=== PATIENT | female | born 1930 | race Caucasian/White ===

== ENCOUNTER 2018-06-06 05:16 | Inpatient (IN) | payer OTHER, MEDICARE ==
[2018-06-06] MEDS ORDERED: SODIUM CHLORIDE 1,000 ML IV STA (05:18)
--- NOTE | 2018-06-06 05:23 | PDOC ---
History of Present Illness <Sher Mclaughlin - Last Filed: 06/06/18 09:40> - General History Source: Patient, Care Provider Exam Limitations: Dementia - History of Present Illness Initial Comments: 06/06/18 05:21 This is an 88-year-old female brought in by EMS for evaluation of generalized weakness and fever. As per the care provider patient has dementia and was unable to provide a adequate history.Percent patient got up to try to go to the bathroom prior to arrival and was so weak that she was unable to ambulate to the bathroom and and was so weak that she collapsed to the floor. She did not fall down but just sunk down to the floor and was too weak to get up again. 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 Caregiver said she also was diagnosed with a recent urinary tract infection and is taking amoxicillin for that. PAST MEDICAL HISTORY: Urinary tract infection, hypertension, high cholesterol PAST SURGICAL HISTORY: no significant history FAMILY HISTORY: no pertinant history SOCIAL HISTORY: Pt lives with a caregiver and is retired MEDICATIONS: reviewed ALLERGIES: As per nursing notes ROS General: + fevers + medical decision making this is a 88-year-old female who was brought in by EMS for evaluation of generalized weakness. Patient is being treated for a urinary tract infection. Chills, +weakness, no weight loss HEENT: No change in vision. No sore throat,. No ear pain CardioVascular: No chest pain or shortness of breath Respiratory:No cough, or wheezing. Gastrointestinal: no nausea, vomiting, diarrhea or constipation, No rectal bleeding Genitourinary: No dysuria, hematuria, or frequency Musculoskeletal: . No joint pain or swelling Neurologic: No headache, vertigo, dizziness or loss of consciousness Psychiatric: nor depression Skin: No rashes or easy bruising Endocrine: no increased thirst or abnormal weight change Allergic: no skin or latex allergy All other systems reviewed and normal Exam: General: Well-nourished well-developed individual, no acute distress HEENT: Throat: Normal, tonsils normal, no erythema or exudate Neck: Supple, no meningeal signs, no lymphadenopathy Eyes::Pupils equal reactive and round, extraocular motion intact Chest: Nontender to palpation Cardiac: S1-S2 normal, regular rate and rhythm, no murmurs rubs or gallops Respiratory: Lungs clear to auscultation bilateral Abdomen: Soft, nondistended, normal bowel sounds, there is no tenderness on palpation diffusely Extremities: Warm, dry, no cyanosis, clubbing, or edema Skin: No rashes Neuro: Alert and , CN II - XII intact, nonfocal exam with normal strength, normal sensation, normal reflexes, Psych: Nor chest x-ray chest x-ray mal mood and affect 06/06/18 05:23 This is a 88-year-old female brought in by EMS for generalized weakness. Patient is being treated for a urinary tract infection. Patient temperature rectally here in the emergency room was 96. Well initiated a sepsis workup. Patient otherwise was not hypotensive or tachycardic. 07:00 07:00 A workup was initiated however results are still pending when care was transferred to Dr. Mclaughlin at 7am. Case discussed in detail with oncoming Emergency Physician including history, physical exam and ancillary studies. Oncoming Emergency Physician has assumed care for the patient and will complete the evaluation and treatment. Patient is aware of the plan. Pt is clinically unchanged and stable. <Mil Bronson I - Last Filed: 06/07/18 21:55> - General Chief Complaint: Weakness Stated Complaint: FEVER, URINARY TRACT INFECTION Time Seen by Provider: 06/06/18 05:18 Past History <Sher Mclaughlin S - Last Filed: 06/06/18 09:40> <Mil Bronson I - Last Filed: 06/07/18 21:55> - Past Medical History Allergies/Adverse Reactions: Allergies Allergy/AdvReac Type Severity Reaction Status Date / Time No Known Allergies Allergy Verified 06/06/18 05:18 Home Medications: Ambulatory Orders Atorvastatin Ca [Lipitor] 20 mg PO Q2D 06/06/18 Latanoprost 0.005% Eye Drops [Xalatan 0.005% Eye Drops -] 1 drop OP HS 06/06/18 Lisinopril 5 mg PO DAILY 06/06/18 Memantine HCl 10 mg PO BID 06/06/18 Risperidone 1 tab PO BID 06/06/18 *Physical Exam - Vital Signs Last Vital Signs Temp Pulse Resp BP Pulse Ox 96.7 F L 73 20 126/76 97 06/06/18 05:59 06/06/18 05:54 06/06/18 05:54 06/06/18 05:54 06/06/18 05:54 <Sher Mclaughlin S - Last Filed: 06/06/18 09:40> ED Treatment Course - LABORATORY CBC & Chemistry Diagram: 06/06/18 05:59 06/06/18 05:59 - ADDITIONAL ORDERS Additional order review: Laboratory Results 06/06/18 06/06/18 06/06/18 05:59 05:59 05:59 PT with INR 11.50 INR 1.02 VBG pH 7.41 POC VBG pCO2 42.9 POC VBG pO2 25.0 L Mixed VBG HCO3 26.4 H Lactic Acid 0.8 06/06/18 05:59 RBC 3.82 MCV 83.0 MCHC 33.8 RDW 14.9 MPV 7.9 Neutrophils % 83.7 H Lymphocytes % 6.2 L Monocytes % 9.3 Eosinophils % 0.5 Basophils % 0.3 - Medications Given in the ED: ED Medications Discontinued Medications Generic Name Dose Route Start Last Admin Trade Name Mer PRN Reason Stop Dose Admin Sodium Chloride 1,000 mls @ 500 mls/hr 06/06/18 05:18 06/06/18 06:04 Normal Saline - IV 06/06/18 07:17 500 mls/hr ASDIR STA Administration <Sher Mclaughlin S - Last Filed: 06/06/18 09:40> - LABORATORY CBC & Chemistry Diagram: 06/06/18 05:59 06/06/18 05:59 <Mil Bronson I - Last Filed: 06/07/18 21:55> Medical Decision Making - Medical Decision Making Received patient from previous shift at 7 am. Reviewed H & P and PE, Agreed with findings Reportedly she has been coughing lately, As reported by her son her level of confusion is grossly unchenfed CXR reading : Early Right lower and mid lung infiltrate.Patient to be admitted as inpatient Hospiatlist called 06/06/18 07:59 <Sher Mclaughlin S - Last Filed: 06/06/18 09:40> *DC/Admit/Observation/Transfer - Discharge Dispostion Decision to Admit order: Yes <Sher Mclaughlin S - Last Filed: 06/06/18 09:40> <Mil Bronson I - Last Filed: 06/07/18 21:55> Diagnosis at time of Disposition: RLL pneumonia Qualifiers: Pneumonia type: due to unspecified organism Qualified Code(s): J18.1 - Lobar pneumonia, unspecified organism Hypothermia Qualifiers: Encounter type: initial encounter Qualified Code(s): T68.XXXA - Hypothermia, initial encounter Dementia Qualifiers: Dementia type: unspecified type Dementia behavioral disturbance: without behavioral disturbance Qualified Code(s): F03.90 - Unspecified dementia without behavioral disturbance - Discharge Dispostion Condition at time of disposition: Stable
[2018-06-06 06:24] LABS: VENOUS PC02 42.9 mmHg (38-52); VENOUS PH 7.41 (7.32-7.42)
[2018-06-06 06:47] LABS: ALBUMIN 3.1 g/dl (3.4-5.0); ALK PHOS 78 U/L (45-117); ANION GAP 11 MMOL/L (8-16); BILIRUBIN,TOTAL 0.8 mg/dL (0.2-1.0); BLOOD UREA NITROGEN 12 mg/dL (7-18); CALCIUM 8.3 mg/dL (8.5-10.1); CHLORIDE 93 mmol/L (98-107); CO2 24 mmol/L (21-32); CREATININE 0.3 mg/dL (0.55-1.02); GLUCOSE,RANDOM 91 mg/dL (74-106); POTASSIUM 4.1 mmol/L (3.5-5.1); SGOT/AST 17 U/L (15-37); SGPT/ALT 15 U/L (12-78); SODIUM 128 mmol/L (136-145); TOT PROT 5.9 g/dl (6.4-8.2)
[2018-06-06 07:02] LABS: BASO % 0.3 % (0-2.0); EOS % 0.5 % (0-4.5); HEMATOCRIT 31.7 % (32.4-45.2); HEMOGLOBIN 10.7 GM/dL (10.7-15.3); LYMPH % 6.2 % (8-40); MCH 28.1 pg (25.7-33.7); MCHC 33.8 g/dl (32.0-36.0); MEAN PLT VOLUME 7.9 fl (7.5-11.1); MONO % 9.3 % (3.8-10.2); NEUT % 83.7 % (42.8-82.8); PLATELET COUNT 223 K/MM3 (134-434); RBC 3.82 M/mm3 (3.60-5.2); RDW 14.9 % (11.6-15.6); WHITE BLOOD COUNT 7.6 K/mm3 (4.0-10.0)
[2018-06-06 07:13] LABS: INR 1.02 (0.83-1.09); PROTHROMBIN TIME (PATIENT) 11.5 SEC (9.7-13.0)
[2018-06-06 07:30] LABS: URINE APPEARANCE Clear; URINE BILIRUBIN Negative (NEGATIVE); URINE COLOR Yellow; URINE GLUCOSE (UA) Negative (NEGATIVE); URINE KETONE Negative (NEGATIVE); URINE LEUK ESTERASE Negative (NEGATIVE); URINE NITRITE Negative (NEGATIVE); URINE PROTEIN Trace (NEGATIVE); URINE UROBILINOGEN 0.2 (0.2-1.0)
[2018-06-06] MEDS ORDERED: CEFTRIAXONE 1,000 MG in DEXTROSE 5%-WATER - 50 ML IVPB ONE (08:23)
[2018-06-06] MEDS ORDERED: AZITHROMYCIN IVPB 500 MG in DEXTROSE 5%-WATER - 250 ML IVPB ONE (08:24)
[2018-06-06] MEDS ORDERED: AZITHROMYCIN 500 MG VIAL IVPB ONE (08:25)
[2018-06-06] MEDS ORDERED: cefTRIAXone SODIUM 1 GM VIAL ONE (08:25)
[2018-06-06 09:44] LABS: EPI CELLS FEW /HPF; URINE WBC 0-2 (0-5)
--- NOTE | 2018-06-06 09:44 | PDOC ---
*Physical Exam - Vital Signs Last Vital Signs Temp Pulse Resp BP Pulse Ox 97.6 F 62 20 105/49 98 06/06/18 09:05 06/06/18 09:05 06/06/18 05:54 06/06/18 09:05 06/06/18 09:05 - Physical Exam General Appearance: Yes: Moderate Distress, Thin HEENT: positive: Hearing Decreased Neck: positive: Supple Respiratory/Chest: positive: Crackles (Right base crackles) Cardiovascular: positive: Regular Rate, S1, S2, Other Gastrointestinal/Abdominal: positive: Normal Bowel Sounds, Flat. negative: Tender Musculoskeletal: positive: Other (Muscular atrophy) Extremity: positive: Pelvis Stable Integumentary: positive: Normal Color, Pale, Cold Neurologic: positive: Alert, Confused ED Treatment Course - LABORATORY CBC & Chemistry Diagram: 06/06/18 05:59 06/06/18 05:59 - ADDITIONAL ORDERS Additional order review: Laboratory Results 06/06/18 06/06/18 06/06/18 07:10 05:59 05:59 PT with INR 11.50 INR 1.02 VBG pH POC VBG pCO2 POC VBG pO2 Mixed VBG HCO3 Sodium Potassium Chloride Carbon Dioxide Anion Gap BUN Creatinine Creat Clearance w eGFR Random Glucose Lactic Acid Calcium Total Bilirubin AST ALT Alkaline Phosphatase Troponin I < 0.02 Total Protein Albumin Urine Color Yellow Urine Appearance Clear Urine pH 6.0 Ur Specific Josephine 1.020 Urine Protein Trace Urine Glucose (UA) Negative Urine Ketones Negative Urine Blood 2+ H Urine Nitrite Negative Urine Bilirubin Negative Urine Urobilinogen 0.2 Ur Leukocyte Esterase Negative 06/06/18 06/06/18 06/06/18 05:59 05:59 05:59 PT with INR INR VBG pH 7.41 POC VBG pCO2 42.9 POC VBG pO2 25.0 L Mixed VBG HCO3 26.4 H Sodium 128 L Potassium 4.1 Chloride 93 L Carbon Dioxide 24 Anion Gap 11 BUN 12 Creatinine 0.3 L Creat Clearance w eGFR > 60 Random Glucose 91 Lactic Acid 0.8 Calcium 8.3 L Total Bilirubin 0.8 AST 17 ALT 15 Alkaline Phosphatase 78 Troponin I Total Protein 5.9 L Albumin 3.1 L Urine Color Urine Appearance Urine pH Ur Specific Josephine Urine Protein Urine Glucose (UA) Urine Ketones Urine Blood Urine Nitrite Urine Bilirubin Urine Urobilinogen Ur Leukocyte Esterase 06/06/18 05:59 RBC 3.82 MCV 83.0 MCHC 33.8 RDW 14.9 MPV 7.9 Neutrophils % 83.7 H Lymphocytes % 6.2 L Monocytes % 9.3 Eosinophils % 0.5 Basophils % 0.3 - Medications Given in the ED: ED Medications Discontinued Medications Generic Name Dose Route Start Last Admin Trade Name Daveyq PRN Reason Stop Dose Admin Sodium Chloride 1,000 mls @ 500 mls/hr 06/06/18 05:18 06/06/18 06:04 Normal Saline - IV 06/06/18 07:17 500 mls/hr ASDIR STA Administration Azithromycin 500 mg/ Dextrose 250 mls @ 250 mls/hr 06/06/18 08:24 06/06/18 09 :15 IVPB 06/06/18 09:23 250 mls/hr ONCE ONE Administration Ceftriaxone Sodium 1,000 mg/ 50 mls @ 100 mls/hr 06/06/18 08:23 06/06/18 08: 30 Dextrose IVPB 06/06/18 08:52 100 mls/hr ONCE ONE Administration Medical Decision Making - Medical Decision Making Patient received iv atbc, fluids as ordered Discusse yomi patient's son present here. Dr Vital agreed with admission 06/06/18 10:25 *DC/Admit/Observation/Transfer Diagnosis at time of Disposition: RLL pneumonia Qualifiers: Pneumonia type: due to unspecified organism Qualified Code(s): J18.1 - Lobar pneumonia, unspecified organism Hypothermia Qualifiers: Encounter type: initial encounter Qualified Code(s): T68.XXXA - Hypothermia, initial encounter Dementia Qualifiers: Dementia type: unspecified type Dementia behavioral disturbance: without behavioral disturbance Qualified Code(s): F03.90 - Unspecified dementia without behavioral disturbance - Discharge Dispostion Condition at time of disposition: Stable Decision to Admit order Date/Time: Decision to Admit Order Category Date Time Status Decision to Admit to Hospital Routine Admission 06/06/18 09:42 Ordered - Referrals - Patient Instructions - Post Discharge Activity
[2018-06-06 09:45] LABS: URINE BACTERIA NONE SEEN /hpf (NEGATIVE)
--- NOTE | 2018-06-06 15:41 | HP ---
Admitting History and Physical - Primary Care Physician PCP: Clarisa Valera - Admission History of Present Illness: 88-year-old female brought in by EMS for evaluation of generalized weakness and fever. As per the care provider patient has dementia and was unable to provide a adequate history.Percent patient got up to try to go to the bathroom prior to arrival and was so weak that she was unable to ambulate to the bathroom and and was so weak that she collapsed to the floor. She did not fall down but just sunk down to the floor and was too weak to get up again. 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 Caregiver said she also was diagnosed with a recent urinary tract infection and is taking amoxicillin for that. 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 ...: No - Advance Directives Advance Directives: Yes: Living Will - Smoking History Smoking history: Former smoker Have you smoked in the past 12 months: No If you are a former smoker, when did you quit?: 25 years ago - Alcohol/Substance Use Hx Alcohol Use: No Home Medications - Allergies Allergies/Adverse Reactions: Allergies Allergy/AdvReac Type Severity Reaction Status Date / Time No Known Allergies Allergy Verified 06/06/18 05:18 - Home Medications Home Medications: Ambulatory Orders Atorvastatin Ca [Lipitor] 20 mg PO Q2D 06/06/18 Latanoprost 0.005% Eye Drops [Xalatan 0.005% Eye Drops -] 1 drop OP HS 06/06/18 Lisinopril 5 mg PO DAILY 06/06/18 Memantine HCl 10 mg PO BID 06/06/18 Risperidone 1 tab PO BID 06/06/18 Physical Examination Vital Signs: Vital Signs Temperature 97.6 F 06/06/18 13:37 Pulse Rate 68 06/06/18 13:37 Respiratory Rate 18 06/06/18 13:37 Blood Pressure 139/66 06/06/18 13:37 O2 Sat by Pulse Oximetry (%) 99 06/06/18 13:37 Constitutional: Yes: No Distress HENT: Yes: Atraumatic Neck: Yes: Supple Cardiovascular: Yes: Regular Rate and Rhythm Respiratory: Yes: CTA Bilaterally Gastrointestinal: Yes: Normal Bowel Sounds Extremities: Yes: WNL Neurological: Yes: Alert, Oriented Labs: CBC, BMP 06/06/18 05:59 06/06/18 05:59 Problem List - Problems (1) Dementia Assessment/Plan: on meds stable Code(s): F03.90 - UNSPECIFIED DEMENTIA WITHOUT BEHAVIORAL DISTURBANCE Qualifiers: Dementia type: unspecified type Dementia behavioral disturbance: without behavioral disturbance Qualified Code(s): F03.90 - Unspecified dementia without behavioral disturbance (2) RLL pneumonia Assessment/Plan: on abx per id stable pulmonary on board Code(s): J18.1 - LOBAR PNEUMONIA, UNSPECIFIED ORGANISM Qualifiers: Pneumonia type: due to unspecified organism Qualified Code(s): J18.1 - Lobar pneumonia, unspecified organism (3) Hypertension Assessment/Plan: on meds stable Code(s): I10 - ESSENTIAL (PRIMARY) HYPERTENSION Assessment/Plan Laboratory Tests 06/06/18 06/06/18 06/06/18 05:59 05:59 05:59 WBC RBC Hgb Hct MCV MCH MCHC RDW Plt Count MPV Absolute Neuts (auto) Neutrophils % Lymphocytes % Monocytes % Eosinophils % Basophils % Nucleated RBC % PT with INR INR VBG pH 7.41 POC VBG pCO2 42.9 POC VBG pO2 25.0 L Mixed VBG HCO3 26.4 H Sodium 128 L Potassium 4.1 Chloride 93 L Carbon Dioxide 24 Anion Gap 11 BUN 12 Creatinine 0.3 L Creat Clearance w eGFR > 60 Random Glucose 91 Lactic Acid 0.8 Calcium 8.3 L Total Bilirubin 0.8 AST 17 ALT 15 Alkaline Phosphatase 78 Troponin I Total Protein 5.9 L Albumin 3.1 L TSH 1.58 Urine Color Urine Appearance Urine pH Ur Specific [place] Urine Protein Urine Glucose (UA) Urine Ketones Urine Blood Urine Nitrite Urine Bilirubin Urine Urobilinogen Ur Leukocyte Esterase Urine RBC Urine WBC Ur Epithelial Cells Urine Bacteria 06/06/18 06/06/18 06/06/18 05:59 05:59 05:59 WBC 7.6 RBC 3.82 Hgb 10.7 Hct 31.7 L MCV 83.0 MCH 28.1 MCHC 33.8 RDW 14.9 Plt Count 223 MPV 7.9 Absolute Neuts (auto) 6.4 Neutrophils % 83.7 H Lymphocytes % 6.2 L Monocytes % 9.3 Eosinophils % 0.5 Basophils % 0.3 Nucleated RBC % 0 PT with INR 11.50 INR 1.02 VBG pH POC VBG pCO2 POC VBG pO2 Mixed VBG HCO3 Sodium Potassium Chloride Carbon Dioxide Anion Gap BUN Creatinine Creat Clearance w eGFR Random Glucose Lactic Acid Calcium Total Bilirubin AST ALT Alkaline Phosphatase Troponin I < 0.02 Total Protein Albumin TSH Urine Color Urine Appearance Urine pH Ur Specific [place] Urine Protein Urine Glucose (UA) Urine Ketones Urine Blood Urine Nitrite Urine Bilirubin Urine Urobilinogen Ur Leukocyte Esterase Urine RBC Urine WBC Ur Epithelial Cells Urine Bacteria 06/06/18 07:10 WBC RBC Hgb Hct MCV MCH MCHC RDW Plt Count MPV Absolute Neuts (auto) Neutrophils % Lymphocytes % Monocytes % Eosinophils % Basophils % Nucleated RBC % PT with INR INR VBG pH POC VBG pCO2 POC VBG pO2 Mixed VBG HCO3 Sodium Potassium Chloride Carbon Dioxide Anion Gap BUN Creatinine Creat Clearance w eGFR Random Glucose Lactic Acid Calcium Total Bilirubin AST ALT Alkaline Phosphatase Troponin I Total Protein Albumin TSH Urine Color Yellow Urine Appearance Clear Urine pH 6.0 Ur Specific [place] 1.020 Urine Protein Trace Urine Glucose (UA) Negative Urine Ketones Negative Urine Blood 2+ H Urine Nitrite Negative Urine Bilirubin Negative Urine Urobilinogen 0.2 Ur Leukocyte Esterase Negative Urine RBC 2-5 Urine WBC 0-2 Ur Epithelial Cells Few Urine Bacteria None seen Active Medications Generic Name Dose Route Start Last Admin Trade Name Freq PRN Reason Stop Dose Admin Acetaminophen 650 mg 06/06/18 15:56 06/08/18 01:01 Tylenol - PO 650 mg Q6H PRN Administration FEVER Albuterol Sulfate 2 puff 06/07/18 19:48 Ventolin Hfa Inhaler - IH Q4H PRN SHORT OF BREATH/WHEEZING Atorvastatin Calcium 20 mg 06/06/18 22:00 06/07/18 21:43 Lipitor - PO 20 mg HS KIEL Administration Ceftriaxone Sodium 1 gm in 50 mls @ 100 mls/hr 06/07/18 11:00 06/08/18 10:41 Rocephin 1gm Ivpb (Pre-Docked) IVPB 100 mls/hr DAILY KIEL Administration Protocol Azithromycin 250 mls @ 250 mls/hr 06/07/18 12:00 06/08/18 10:44 Zithromax 500mg Ivpb (Pre-Docked) IVPB 250 mls/hr DAILY KIEL Administration Latanoprost 1 drop 06/06/18 22:00 06/07/18 21:45 Xalatan 0.005% Eye Drops - OU 1 drop HS KIEL Administration Lisinopril 5 mg 06/07/18 10:00 06/08/18 10:44 Prinivil PO 5 mg DAILY KIEL Administration Memantine 10 mg 06/06/18 22:00 06/08/18 10:44 Namenda - PO 10 mg BID KIEL Administration Risperidone 0.25 mg 06/06/18 10:00 06/08/18 10:44 Risperdal - PO 0.25 mg DAILY KIEL Administration
[2018-06-06] MEDS ORDERED: ACETAMINOPHEN 325 MG TABLET (FP) PO PRN (15:56)
--- NOTE | 2018-06-06 15:57 | EKG ---
Test Reason : Blood Pressure : / mmHG Vent. Rate : 066 BPM Atrial Rate : 066 BPM P-R Int : 118 ms QRS Dur : 066 ms QT Int : 396 ms P-R-T Axes : 054 071 075 degrees QTc Int : 415 ms SINUS RHYTHM WITH PREMATURE SUPRAVENTRICULAR COMPLEXES OTHERWISE NORMAL ECG NO PREVIOUS ECGS AVAILABLE Confirmed by SRAVAN DANIELLE, LIV ([id number]) on 06/06/2018 3:56:42 PM Referred By: MD RIZVI Confirmed By:LIV HINSON MD
[2018-06-06] MEDS: ATORVASTATIN CA 20 MG TABLET (FP) PO SCH (21:26)
[2018-06-06] MEDS: LATANOPROST 0.005% OPHTH SOLN 2.5ML BOTTLE OU SCH (21:26)
[2018-06-06] MEDS: MEMANTINE HCL 10 MG TABLET (FP) PO SCH (21:26)
[2018-06-07] MEDS: risperiDONE 0.25 MG TABLET (FP) PO SCH ×2 (07:27→09:29)
[2018-06-07] MEDS: MEMANTINE HCL 10 MG TABLET (FP) PO SCH ×2 (09:29→21:43)
[2018-06-07] MEDS: LISINOPRIL 5 MG TABLET (FP) PO SCH (09:29)
--- NOTE | 2018-06-07 10:40 | PN ---
Progress Note (short form) - Note Progress Note: PULMONARY CONSULTATION DICTATED 06/07/18 IMP RLL PNEUMONIA WEAKNESS HYPONATREMIA ANEMIA HTN HYPERCHOLESTEROLEMIA DEMENTIA PLAN ABX O2 URINE LYTES MONITOR LYTES,NA CHEST CT CULTURES,URINARY ANTIGENS DR TORRES Problem List - Problems (1) Dementia Code(s): F03.90 - UNSPECIFIED DEMENTIA WITHOUT BEHAVIORAL DISTURBANCE Qualifiers: Dementia type: unspecified type Dementia behavioral disturbance: without behavioral disturbance Qualified Code(s): F03.90 - Unspecified dementia without behavioral disturbance (2) Hypothermia Code(s): T68.XXXA - HYPOTHERMIA, INITIAL ENCOUNTER Qualifiers: Encounter type: initial encounter Qualified Code(s): T68.XXXA - Hypothermia , initial encounter (3) RLL pneumonia Code(s): J18.1 - LOBAR PNEUMONIA, UNSPECIFIED ORGANISM Qualifiers: Pneumonia type: due to unspecified organism Qualified Code(s): J18.1 - Lobar pneumonia, unspecified organism (4) Hypertension Code(s): I10 - ESSENTIAL (PRIMARY) HYPERTENSION (5) Hyponatremia Code(s): E87.1 - HYPO-OSMOLALITY AND HYPONATREMIA
--- NOTE | 2018-06-07 10:55 | PN ---
Progress Note, Physician History of Present Illness: Asked to evaluate this 88 y.o. female with PMH of Hypercholesterolemia, HTN, dementia, Anemia, UTI being treated with amoxicillin BIBA for generalized weakness and difficulty ambulating due to weakness and reported fever. Pt is a poor historian but states that she "wasn't feeling 100% for a while". She can not provide further information. In the ER patient was found to be hyponatremic , hypothermic, weak but in no acute respiratory distress. CXR notable for RLL infiltrate. Currently patient is alert, normothermic, verbally responsive and breathing comfortably but has a cough. - Current Medication List Current Medications: Active Medications Acetaminophen (Tylenol -) 650 mg PO Q6H PRN PRN Reason: FEVER Atorvastatin Calcium (Lipitor -) 20 mg PO HS [facility] Last Admin: 06/06/18 21:26 Dose: 20 mg Ceftriaxone Sodium 1 gm/ (Dextrose) 100 mls @ 200 mls/hr IVPB DAILY [facility]; Protocol Azithromycin 500 mg/ Dextrose 250 mls @ 250 mls/hr IVPB DAILY [facility] Latanoprost (Xalatan 0.005% Eye Drops -) 1 drop OU HS [facility] Last Admin: 06/06/18 21:26 Dose: 1 drop Lisinopril (Prinivil) 5 mg PO DAILY [facility] Last Admin: 06/07/18 09:29 Dose: 5 mg Memantine (Namenda -) 10 mg PO BID [facility] Last Admin: 06/07/18 09:29 Dose: 10 mg Risperidone (Risperdal -) 0.25 mg PO DAILY [facility] Last Admin: 06/07/18 09:29 Dose: 0.25 mg - Objective Vital Signs: Vital Signs Temperature 98.5 F 06/07/18 08:59 Pulse Rate 82 06/07/18 08:59 Respiratory Rate 17 06/07/18 08:59 Blood Pressure 173/71 06/07/18 08:59 O2 Sat by Pulse Oximetry (%) 95 06/07/18 08:59 Constitutional: Yes: No Distress, Calm Eyes: Yes: Conjunctiva Clear HENT: Yes: Atraumatic Neck: Yes: Supple Cardiovascular: Yes: Regular Rate and Rhythm Respiratory: Yes: Other (Rt basilar crackles) Gastrointestinal: Yes: Normal Bowel Sounds, Soft Genitourinary: Yes: WNL Musculoskeletal: Yes: WNL Extremities: Yes: WNL Edema: No Peripheral Pulses WNL: Yes Integumentary: Yes: WNL Neurological: Yes: Alert Psychiatric: Yes: Alert Labs: CBC, BMP 06/06/18 05:59 06/06/18 05:59 INR, PTT INR 1.02 (0.83-1.09) 06/06/18 05:59 Microbiology 06/06/18 05:59 Blood - Peripheral Venous Blood Culture - Preliminary NO GROWTH OBTAINED AFTER 24 HOURS, INCUBATION TO CONTINUE FOR 4 DAYS. 06/06/18 05:59 Blood - Peripheral Venous Blood Culture - Preliminary NO GROWTH OBTAINED AFTER 24 HOURS, INCUBATION TO CONTINUE FOR 4 DAYS. u/a: no leuk est/nitrites/wbc Laboratory Results - last 24 hr 06/06/18 05:59 Sodium 128 L Potassium 4.1 Chloride 93 L Carbon Dioxide 24 Anion Gap 11 BUN 12 Creatinine 0.3 L Creat Clearance w eGFR > 60 Random Glucose 91 Calcium 8.3 L Total Bilirubin 0.8 AST 17 ALT 15 Alkaline Phosphatase 78 Total Protein 5.9 L Albumin 3.1 L TSH 1.58 - ....Imaging Chest X-ray: Report Reviewed, Image Reviewed Problem List - Problems (1) Dementia Code(s): F03.90 - UNSPECIFIED DEMENTIA WITHOUT BEHAVIORAL DISTURBANCE Qualifiers: Dementia type: unspecified type Dementia behavioral disturbance: without behavioral disturbance Qualified Code(s): F03.90 - Unspecified dementia without behavioral disturbance (2) Hypertension Code(s): I10 - ESSENTIAL (PRIMARY) HYPERTENSION (3) Hyponatremia Code(s): E87.1 - HYPO-OSMOLALITY AND HYPONATREMIA (4) Hypothermia Code(s): T68.XXXA - HYPOTHERMIA, INITIAL ENCOUNTER Qualifiers: Encounter type: initial encounter Qualified Code(s): T68.XXXA - Hypothermia , initial encounter (5) RLL pneumonia Code(s): J18.1 - LOBAR PNEUMONIA, UNSPECIFIED ORGANISM Qualifiers: Pneumonia type: due to unspecified organism Qualified Code(s): J18.1 - Lobar pneumonia, unspecified organism Assessment/Plan 88 y.o. female with PMH of HTN, hypercholesterolemia, dementia, anemia, UTI presenting with pronounced generalized weakness, cough, hyponatremia, and mild hypothermia RLL PNA HTN Dementia Hypercholesterolemia Hx of UTI -- labs, imaging reviewed -- Continue Ceftriaxone/Zithromax -- send Urinary Ags -- Blood cultures neg 24hr so far -- continue monitor vitals will follow Thank you
[2018-06-07] MEDS ORDERED: AZITHROMYCIN IVPB 250 ML IVPB SCH (11:00)
[2018-06-07] MEDS: CEFTRIAXONE 1 GM/50 ML BAG IVPB SCH (11:18)
--- NOTE | 2018-06-07 11:37 | CONS ---
PULMONARY CONSULTATION DATE OF CONSULTATION: 06/07/2018 REFERRING PHYSICIAN: Eduardo Valera MD HISTORY OF PRESENT ILLNESS: History was obtained from medical records. The patient is poor historian secondary to dementia. The patient is an 88-year-old white female with a past medical history of hypertension, hypercholesterolemia, UTIs, admitted to [facility] secondary to generalized weakness. Patient apparently as per the patient's care provider got up and tried to go to the bathroom; though apparently was so weak, she was unable to ambulate and she collapsed on the floor. There was no loss of consciousness. She apparently did not fall down, but just sunk down to the floor and was too weak to get up. Caregiver called 911. The patient was brought to the emergency room. Apparently the patient was recently diagnosed with a urinary tract infection and was taking amoxicillin. On admission, she had a chest x-ray performed which revealed possible right lower lobe pneumonia. She was admitted to the floor. She was started on antibiotic therapy. Of note, her chemistry revealed sodium of 128 and she was noted to be anemic with a hemoglobin of 10.7. On admission, she was also noted to be hypothermic with a temperature of 96.4. No further history is available at this time. PAST MEDICAL HISTORY: Again includes hypertension, hypercholesterolemia, UTIs. REVIEW OF SYSTEMS: Unable to obtain. CURRENT MEDICATIONS: Include Tylenol, Prinivil, , Namenda, Xalatan, Lipitor. PHYSICAL EXAMINATION: General: The patient is an elderly, white female, thin, well developed, awake, alert, confused, in no acute distress. Vital signs: She is afebrile, blood pressure is 173/71, respiratory rate is 20, O2 saturation is 95% on room air. HEENT: Exam is normocephalic, atraumatic. Neck: Supple. Heart: Regular S1 and S2. Chest: Bibasilar crackles. Abdomen: Soft. Bowel sounds are positive. Extremities: No cyanosis, edema. LABORATORIES: WBC is 7.6, hemoglobin 10.7, hematocrit 31.7, and platelet count of 223,000. INR is 1.02. Venous blood gas: 7.41, PCO2 of 42, a PO2 of 25. Sodium is 128, BUN is 12, creatinine 1.3. Troponin 0.02. IMAGING: Chest x-ray reveals possible right lower lobe infiltrate. IMPRESSION: 1. Weakness. Rule out pneumonia right lower lobe. 2. Hyponatremia. 3. Dementia. 4. Hypercholesterolemia. 5. Hypertension. 6. Anemia. PLAN: Antibiotic therapy. Obtain CT scan of the chest and cultures. Monitor serum sodium. Obtain urine electrolytes. Supplemental O2. HARDEEP TORRES M.D. [id number]
[2018-06-07] MEDS: AZITHROMYCIN IVPB 250 ML IVPB SCH (12:07)
--- NOTE | 2018-06-07 13:57 | PN ---
Progress Note, Physician - Current Medication List Current Medications: Active Medications Acetaminophen (Tylenol -) 650 mg PO Q6H PRN PRN Reason: FEVER Atorvastatin Calcium (Lipitor -) 20 mg PO HS [facility] Last Admin: 06/06/18 21:26 Dose: 20 mg Ceftriaxone Sodium (Rocephin 1gm Ivpb (Pre-Docked)) 1 gm in 50 mls @ 100 mls/ hr IVPB DAILY [facility]; Protocol Last Admin: 06/07/18 11:18 Dose: 100 mls/hr Azithromycin (Zithromax 500mg Ivpb (Pre-Docked)) 250 mls @ 250 mls/hr IVPB DAILY [facility] Last Admin: 06/07/18 12:07 Dose: 250 mls/hr Latanoprost (Xalatan 0.005% Eye Drops -) 1 drop OU HS [facility] Last Admin: 06/06/18 21:26 Dose: 1 drop Lisinopril (Prinivil) 5 mg PO DAILY [facility] Last Admin: 06/07/18 09:29 Dose: 5 mg Memantine (Namenda -) 10 mg PO BID [facility] Last Admin: 06/07/18 09:29 Dose: 10 mg Risperidone (Risperdal -) 0.25 mg PO DAILY [facility] Last Admin: 06/07/18 09:29 Dose: 0.25 mg - Objective Vital Signs: Vital Signs Temperature 98.2 F 06/07/18 11:00 Pulse Rate 79 06/07/18 11:00 Respiratory Rate 17 06/07/18 11:00 Blood Pressure 160/65 06/07/18 11:00 O2 Sat by Pulse Oximetry (%) 95 06/07/18 08:59 Constitutional: Yes: No Distress HENT: Yes: Atraumatic Neck: Yes: Supple Cardiovascular: Yes: Regular Rate and Rhythm Respiratory: Yes: CTA Bilaterally Gastrointestinal: Yes: Normal Bowel Sounds Extremities: Yes: WNL Edema: No Neurological: Yes: Alert, Oriented Labs: CBC, BMP 06/06/18 05:59 06/06/18 05:59 INR, PTT INR 1.02 (0.83-1.09) 06/06/18 05:59 Problem List - Problems (1) Dementia Assessment/Plan: on meds stable Code(s): F03.90 - UNSPECIFIED DEMENTIA WITHOUT BEHAVIORAL DISTURBANCE Qualifiers: Dementia type: unspecified type Dementia behavioral disturbance: without behavioral disturbance Qualified Code(s): F03.90 - Unspecified dementia without behavioral disturbance (2) RLL pneumonia Assessment/Plan: on abx per id stable pulmonary on board Code(s): J18.1 - LOBAR PNEUMONIA, UNSPECIFIED ORGANISM Qualifiers: Pneumonia type: due to unspecified organism Qualified Code(s): J18.1 - Lobar pneumonia, unspecified organism (3) Hypertension Assessment/Plan: on meds stable Code(s): I10 - ESSENTIAL (PRIMARY) HYPERTENSION
[2018-06-07] MEDS ORDERED: ALBUTEROL SO4 8 GM HFA INHALER IH PRN (19:48)
[2018-06-07] MEDS: ATORVASTATIN CA 20 MG TABLET (FP) PO SCH (21:43)
[2018-06-07] MEDS: LATANOPROST 0.005% OPHTH SOLN 2.5ML BOTTLE OU SCH (21:45)
--- NOTE | 2018-06-07 23:14 | ED.PROV ---
Physicial Exam I saw and examined the patient. This is an 88-year-old female who has called to examine status post a fall. As per staff patient's fall was unwitnessed. Patient had been sitting in a chair [facility] and went in and found her laying on the floor. Patient denied any injury or complaints. On my exam patient had no evidence of head trauma, patient's cervical spine was nontender on palpation diffusely she did have some mild paraspinal discomfort on palpation. There was no tenderness on palpation of the chest back thoracic, lumbar and sacral spine, pelvis, hips, upper and lower extremities. A head CT had been done prior to my arrival to evaluate the patient. - Vital Signs Last Vital Signs Temp Pulse Resp BP Pulse Ox 99.0 F 77 18 131/64 99 06/07/18 22:50 06/07/18 22:50 06/07/18 22:50 06/07/18 22:50 06/07/18 22:50
[2018-06-08 08:45] LABS: HEMATOCRIT 32.3 % (32.4-45.2); HEMOGLOBIN 10.6 GM/dl (10.7-15.3); MCH 28.5 pg (25.7-33.7); MEAN CELL VOLUME 86.6 fl (80-96); PLATELET COUNT 299 K/MM3 (134-434); RBC 3.73 M/mm3 (3.60-5.2); RDW 14.1 % (11.6-15.6); WHITE BLOOD COUNT 7.6 K/mm3 (4.0-10.8)
[2018-06-08 08:56] LABS: ALBUMIN 2.9 g/dl (3.5-5.0); ALK PHOS 67 U/L (32-92); ANION GAP 11 MMOL/L (8-16); BILIRUBIN,TOTAL 0.9 mg/dl (0.2-1.0); BLOOD UREA NITROGEN 12 mg/dl (7-18); CALCIUM 8.4 mg/dl (8.4-10.2); CHLORIDE 92 mmol/L (98-107); CO2 23 mmol/L (22-28); GLUCOSE,RANDOM 85 mg/dl (74-106); POTASSIUM 3.7 mmol/L (3.5-5.1); SGOT/AST 18 U/L (10-42); SGPT/ALT 13 U/L (10-40); SODIUM 126 mmol/L (136-145); TOT PROT 5.6 g/dl (6.4-8.3)
[2018-06-08 08:58] LABS: CREATININE < 0.6 mg/dl (0.6-1.3)
[2018-06-08 09:24] LABS: PLATELET ESTIMATE ADEQUATE
[2018-06-08] MEDS: CEFTRIAXONE 1 GM/50 ML BAG IVPB SCH (10:41)
[2018-06-08] MEDS: MEMANTINE HCL 10 MG TABLET (FP) PO SCH ×2 (10:44→21:25)
[2018-06-08] MEDS: risperiDONE 0.25 MG TABLET (FP) PO SCH (10:44)
[2018-06-08] MEDS: LISINOPRIL 5 MG TABLET (FP) PO SCH (10:44)
[2018-06-08] MEDS: AZITHROMYCIN IVPB 250 ML IVPB SCH (10:44)
--- NOTE | 2018-06-08 11:36 | PN ---
Progress Note, Physician History of Present Illness: Events noted. Had an unwitness fall, found laying on the floor. She is alert but weak, remains afebrile. Denies shortness of breath. - Current Medication List Current Medications: Active Medications Acetaminophen (Tylenol -) 650 mg PO Q6H PRN PRN Reason: FEVER Last Admin: 06/08/18 01:01 Dose: 650 mg Albuterol Sulfate (Ventolin Hfa Inhaler -) 2 puff IH Q4H PRN PRN Reason: SHORT OF BREATH/WHEEZING Atorvastatin Calcium (Lipitor -) 20 mg PO HS [facility] Last Admin: 06/07/18 21:43 Dose: 20 mg Ceftriaxone Sodium (Rocephin 1gm Ivpb (Pre-Docked)) 1 gm in 50 mls @ 100 mls/ hr IVPB DAILY [facility]; Protocol Last Admin: 06/08/18 10:41 Dose: 100 mls/hr Azithromycin (Zithromax 500mg Ivpb (Pre-Docked)) 250 mls @ 250 mls/hr IVPB DAILY [facility] Last Admin: 06/08/18 10:44 Dose: 250 mls/hr Latanoprost (Xalatan 0.005% Eye Drops -) 1 drop OU HS [facility] Last Admin: 06/07/18 21:45 Dose: 1 drop Lisinopril (Prinivil) 5 mg PO DAILY [facility] Last Admin: 06/08/18 10:44 Dose: 5 mg Memantine (Namenda -) 10 mg PO BID [facility] Last Admin: 06/08/18 10:44 Dose: 10 mg Risperidone (Risperdal -) 0.25 mg PO DAILY [facility] Last Admin: 06/08/18 10:44 Dose: 0.25 mg - Objective Vital Signs: Vital Signs Temperature 98 F 06/08/18 09:15 Pulse Rate 70 06/08/18 09:15 Respiratory Rate 18 06/08/18 09:15 Blood Pressure 145/60 06/08/18 09:15 O2 Sat by Pulse Oximetry (%) 94 L 06/08/18 05:24 Constitutional: Yes: No Distress, Calm, Other (generalized weakness) HENT: Yes: Atraumatic Cardiovascular: Yes: Regular Rate and Rhythm Respiratory: Yes: Rhonchi (Rt basilar) Gastrointestinal: Yes: Normal Bowel Sounds, Soft Genitourinary: Yes: WNL Musculoskeletal: Yes: WNL Edema: No Neurological: Yes: Alert Labs: CBC, BMP 06/08/18 07:20 06/08/18 07:20 INR, PTT INR 1.02 (0.83-1.09) 06/06/18 05:59 Microbiology 06/06/18 05:59 Blood - Peripheral Venous Blood Culture - Preliminary NO GROWTH OBTAINED AFTER 48 HOURS, INCUBATION TO CONTINUE FOR 3 DAYS. 06/06/18 05:59 Blood - Peripheral Venous Blood Culture - Preliminary NO GROWTH OBTAINED AFTER 48 HOURS, INCUBATION TO CONTINUE FOR 3 DAYS. 06/06/18 07:14 Urine - Urine Clean Catch Urine Culture - Final NO GROWTH OBTAINED Urinary Ags for Strep/Legionella pending Problem List - Problems (1) Dementia Code(s): F03.90 - UNSPECIFIED DEMENTIA WITHOUT BEHAVIORAL DISTURBANCE Qualifiers: Dementia type: unspecified type Dementia behavioral disturbance: without behavioral disturbance Qualified Code(s): F03.90 - Unspecified dementia without behavioral disturbance (2) Hypertension Code(s): I10 - ESSENTIAL (PRIMARY) HYPERTENSION (3) Hyponatremia Code(s): E87.1 - HYPO-OSMOLALITY AND HYPONATREMIA (4) Hypothermia Code(s): T68.XXXA - HYPOTHERMIA, INITIAL ENCOUNTER Qualifiers: Encounter type: initial encounter Qualified Code(s): T68.XXXA - Hypothermia , initial encounter (5) RLL pneumonia Code(s): J18.1 - LOBAR PNEUMONIA, UNSPECIFIED ORGANISM Qualifiers: Pneumonia type: due to unspecified organism Qualified Code(s): J18.1 - Lobar pneumonia, unspecified organism Assessment/Plan 88 y.o. female with PMH of HTN, hypercholesterolemia, dementia, anemia, UTI presenting with pronounced generalized weakness, cough, hyponatremia, and mild hypothermia RLL PNA HTN Dementia Hypercholesterolemia Hx of UTI --Pt afebrile, remains weak -- Continue Ceftriaxone/Zithromax -- f/u Urinary Ag -- Blood cultures neg 48 hrs -- continue monitor vitals
--- NOTE | 2018-06-08 11:47 | PN ---
Progress Note (short form) - Note Progress Note: PULMONARY SPOKE WITH SON PATIENT HAS ROUND THE CLOCK CARE AT HOME VSS/AFEBRILE ANICTERIC/PALE SCATTERED RHONCHI/DIMINISHED BREATHN SOUNDS S1S2 BS+ NO EDEMA LABS/CT/MEDS/NOTES/MICRO REVIEWED IMP RLL PNEUMONIA COPD WEAKNESS HYPONATREMIA ANEMIA HTN HYPERCHOLESTEROLEMIA DEMENTIA PLAN ABX O2 URINE LYTES MONITOR LYTES,NA CULTURES,URINARY ANTIGENS PENDING R DENISE DANIELLE
[2018-06-08 14:46] VITALS: BMI 15.2
--- NOTE | 2018-06-08 17:39 | PN ---
Progress Note, Physician - Current Medication List Current Medications: Active Medications Acetaminophen (Tylenol -) 650 mg PO Q6H PRN PRN Reason: FEVER Last Admin: 06/08/18 01:01 Dose: 650 mg Albuterol Sulfate (Ventolin Hfa Inhaler -) 2 puff IH Q4H PRN PRN Reason: SHORT OF BREATH/WHEEZING Atorvastatin Calcium (Lipitor -) 20 mg PO HS [facility] Last Admin: 06/07/18 21:43 Dose: 20 mg Ceftriaxone Sodium (Rocephin 1gm Ivpb (Pre-Docked)) 1 gm in 50 mls @ 100 mls/ hr IVPB DAILY [facility]; Protocol Last Admin: 06/08/18 10:41 Dose: 100 mls/hr Azithromycin (Zithromax 500mg Ivpb (Pre-Docked)) 250 mls @ 250 mls/hr IVPB DAILY [facility] Last Admin: 06/08/18 10:44 Dose: 250 mls/hr Latanoprost (Xalatan 0.005% Eye Drops -) 1 drop OU HS [facility] Last Admin: 06/07/18 21:45 Dose: 1 drop Lisinopril (Prinivil) 5 mg PO DAILY [facility] Last Admin: 06/08/18 10:44 Dose: 5 mg Memantine (Namenda -) 10 mg PO BID [facility] Last Admin: 06/08/18 10:44 Dose: 10 mg Risperidone (Risperdal -) 0.25 mg PO DAILY [facility] Last Admin: 06/08/18 10:44 Dose: 0.25 mg - Objective Vital Signs: Vital Signs Temperature 98.3 F 06/08/18 15:40 Pulse Rate 92 H 06/08/18 15:40 Respiratory Rate 18 06/08/18 15:40 Blood Pressure 138/61 06/08/18 15:40 O2 Sat by Pulse Oximetry (%) 100 06/08/18 14:15 Constitutional: Yes: No Distress HENT: Yes: Atraumatic Neck: Yes: Supple Cardiovascular: Yes: Regular Rate and Rhythm Respiratory: Yes: Rhonchi Gastrointestinal: Yes: Normal Bowel Sounds Extremities: Yes: WNL Labs: CBC, BMP 06/08/18 07:20 06/08/18 07:20 INR, PTT INR 1.02 (0.83-1.09) 06/06/18 05:59 Problem List - Problems (1) Dementia Assessment/Plan: on meds stable Code(s): F03.90 - UNSPECIFIED DEMENTIA WITHOUT BEHAVIORAL DISTURBANCE Qualifiers: Dementia type: unspecified type Dementia behavioral disturbance: without behavioral disturbance Qualified Code(s): F03.90 - Unspecified dementia without behavioral disturbance (2) RLL pneumonia Assessment/Plan: on abx per id stable pulmonary on board Code(s): J18.1 - LOBAR PNEUMONIA, UNSPECIFIED ORGANISM Qualifiers: Pneumonia type: due to unspecified organism Qualified Code(s): J18.1 - Lobar pneumonia, unspecified organism (3) Hyponatremia Assessment/Plan: will start her on NA pills on nacl ivf Code(s): E87.1 - HYPO-OSMOLALITY AND HYPONATREMIA
[2018-06-08] MEDS ORDERED: PT OWN MED DRAWER 7, Y5N ONE (21:18)
[2018-06-08] MEDS: ATORVASTATIN CA 20 MG TABLET (FP) PO SCH (21:25)
[2018-06-08] MEDS: LATANOPROST 0.005% OPHTH SOLN 2.5ML BOTTLE OU SCH (21:26)
[2018-06-09 08:21] LABS: BASO % 0.3 % (0-2.0); EOS % 0.5 % (0-4.5); HEMOGLOBIN 9.7 GM/dl (10.7-15.3); LYMPH % 9.3 % (8-40)
[2018-06-09 08:25] LABS: HEMATOCRIT 29.9 % (32.4-45.2); MCH 27.6 pg (25.7-33.7); MCHC 32.4 g/dl (32.0-36.0); MEAN CELL VOLUME 85.2 fl (80-96); MEAN PLT VOLUME 7.3 fl (7.5-11.1); MONO % 11.2 % (3.8-10.2); NEUT % 78.7 % (42.8-82.8); PLATELET COUNT 302 K/MM3 (134-434); RBC 3.51 M/mm3 (3.60-5.2); RDW 14.3 % (11.6-15.6); WHITE BLOOD COUNT 7.3 K/mm3 (4.0-10.8)
[2018-06-09 08:34] LABS: ALBUMIN 2.5 g/dl (3.5-5.0); ALK PHOS 56 U/L (32-92); ANION GAP 8 MMOL/L (8-16); BILIRUBIN,TOTAL 0.4 mg/dl (0.2-1.0); BLOOD UREA NITROGEN 14 mg/dl (7-18); CALCIUM 8.2 mg/dl (8.4-10.2); CHLORIDE 91 mmol/L (98-107); CO2 25 mmol/L (22-28); GLUCOSE,RANDOM 88 mg/dl (74-106); POTASSIUM 3.7 mmol/L (3.5-5.1); SGOT/AST 15 U/L (10-42); SGPT/ALT 11 U/L (10-40); TOT PROT 4.9 g/dl (6.4-8.3)
[2018-06-09 08:36] LABS: CREATININE < 0.6 mg/dl (0.6-1.3)
[2018-06-09 08:39] LABS: SODIUM 124 mmol/L (136-145)
[2018-06-09] MEDS: LISINOPRIL 5 MG TABLET (FP) PO SCH (09:02)
[2018-06-09] MEDS: CEFTRIAXONE 1 GM/50 ML BAG IVPB SCH (09:02)
[2018-06-09] MEDS: MEMANTINE HCL 10 MG TABLET (FP) PO SCH ×2 (09:02→21:18)
[2018-06-09] MEDS: risperiDONE 0.25 MG TABLET (FP) PO SCH (09:02)
[2018-06-09] MEDS: AZITHROMYCIN IVPB 250 ML IVPB SCH (09:35)
[2018-06-09] MEDS ORDERED: SODIUM CHLORIDE 1,000 ML IV SCH (09:45)
--- NOTE | 2018-06-09 09:47 | PN ---
Progress Note, Physician History of Present Illness: Pt is weak but verbally responsive. Remains afebrile. Cough noted but no acute respiratory distress. No rash or diarrhea noted. - Current Medication List Current Medications: Active Medications Acetaminophen (Tylenol -) 650 mg PO Q6H PRN PRN Reason: FEVER Last Admin: 06/08/18 01:01 Dose: 650 mg Albuterol Sulfate (Ventolin Hfa Inhaler -) 2 puff IH Q4H PRN PRN Reason: SHORT OF BREATH/WHEEZING Atorvastatin Calcium (Lipitor -) 20 mg PO HS [facility] Last Admin: 06/08/18 21:25 Dose: 20 mg Ceftriaxone Sodium (Rocephin 1gm Ivpb (Pre-Docked)) 1 gm in 50 mls @ 100 mls/ hr IVPB DAILY [facility]; Protocol Last Admin: 06/09/18 09:02 Dose: 100 mls/hr Azithromycin (Zithromax 500mg Ivpb (Pre-Docked)) 250 mls @ 250 mls/hr IVPB DAILY [facility] Last Admin: 06/09/18 09:35 Dose: 250 mls/hr Sodium Chloride (Normal Saline -) 1,000 mls @ 75 mls/hr IV Q13H [facility] Latanoprost (Xalatan 0.005% Eye Drops -) 1 drop OU HS [facility] Last Admin: 06/08/18 21:26 Dose: 1 drop Lisinopril (Prinivil) 5 mg PO DAILY [facility] Last Admin: 06/09/18 09:02 Dose: 5 mg Memantine (Namenda -) 10 mg PO BID [facility] Last Admin: 06/09/18 09:02 Dose: 10 mg Risperidone (Risperdal -) 0.25 mg PO DAILY [facility] Last Admin: 06/09/18 09:02 Dose: 0.25 mg - Objective Vital Signs: Vital Signs Temperature 97.7 F 06/09/18 05:00 Pulse Rate 80 06/09/18 05:00 Respiratory Rate 20 06/09/18 05:00 Blood Pressure 133/50 06/09/18 05:00 O2 Sat by Pulse Oximetry (%) 96 06/09/18 00:33 Constitutional: Yes: No Distress, Calm Neck: Yes: Supple Cardiovascular: Yes: Regular Rate and Rhythm Respiratory: Yes: Diminished (Slightly in Rt base) Gastrointestinal: Yes: Normal Bowel Sounds, Soft Genitourinary: Yes: WNL Extremities: Yes: WNL Edema: No Integumentary: Yes: WNL Neurological: Yes: Alert Labs: CBC, BMP 06/09/18 07:35 06/09/18 07:35 INR, PTT INR 1.02 (0.83-1.09) 06/06/18 05:59 Problem List - Problems (1) Dementia Code(s): F03.90 - UNSPECIFIED DEMENTIA WITHOUT BEHAVIORAL DISTURBANCE Qualifiers: Dementia type: unspecified type Dementia behavioral disturbance: without behavioral disturbance Qualified Code(s): F03.90 - Unspecified dementia without behavioral disturbance (2) Hypertension Code(s): I10 - ESSENTIAL (PRIMARY) HYPERTENSION (3) Hyponatremia Code(s): E87.1 - HYPO-OSMOLALITY AND HYPONATREMIA (4) Hypothermia Code(s): T68.XXXA - HYPOTHERMIA, INITIAL ENCOUNTER Qualifiers: Encounter type: initial encounter Qualified Code(s): T68.XXXA - Hypothermia , initial encounter (5) RLL pneumonia Code(s): J18.1 - LOBAR PNEUMONIA, UNSPECIFIED ORGANISM Qualifiers: Pneumonia type: due to unspecified organism Qualified Code(s): J18.1 - Lobar pneumonia, unspecified organism Assessment/Plan 88 y.o. female with PMH of HTN, hypercholesterolemia, dementia, anemia, UTI presenting with pronounced generalized weakness, cough, hyponatremia, and mild hypothermia RLL PNA HTN Dementia Hypercholesterolemia Hx of UTI Hyponatremia --Pt afebrile, without respiratory distress -- Continue Ceftriaxone/Zithromax --urinary Ags negative -- Blood cultures neg -- monitor sodium levels -- continue monitor vitals
--- NOTE | 2018-06-09 18:08 | PN ---
Progress Note, Physician History of Present Illness: awake and alert - Current Medication List Current Medications: Active Medications Acetaminophen (Tylenol -) 650 mg PO Q6H PRN PRN Reason: FEVER Last Admin: 06/08/18 01:01 Dose: 650 mg Albuterol Sulfate (Ventolin Hfa Inhaler -) 2 puff IH Q4H PRN PRN Reason: SHORT OF BREATH/WHEEZING Atorvastatin Calcium (Lipitor -) 20 mg PO HS [facility] Last Admin: 06/08/18 21:25 Dose: 20 mg Ceftriaxone Sodium (Rocephin 1gm Ivpb (Pre-Docked)) 1 gm in 50 mls @ 100 mls/ hr IVPB DAILY [facility]; Protocol Last Admin: 06/09/18 09:02 Dose: 100 mls/hr Azithromycin (Zithromax 500mg Ivpb (Pre-Docked)) 250 mls @ 250 mls/hr IVPB DAILY [facility] Last Admin: 06/09/18 09:35 Dose: 250 mls/hr Sodium Chloride (Normal Saline -) 1,000 mls @ 75 mls/hr IV Q13H [facility] Last Admin: 06/09/18 10:16 Dose: 75 mls/hr Latanoprost (Xalatan 0.005% Eye Drops -) 1 drop OU HS [facility] Last Admin: 06/08/18 21:26 Dose: 1 drop Lisinopril (Prinivil) 5 mg PO DAILY [facility] Last Admin: 06/09/18 09:02 Dose: 5 mg Memantine (Namenda -) 10 mg PO BID [facility] Last Admin: 06/09/18 09:02 Dose: 10 mg Risperidone (Risperdal -) 0.25 mg PO DAILY [facility] Last Admin: 06/09/18 09:02 Dose: 0.25 mg Sodium Chloride (Sodium Chloride Tablet -) 1 gm PO BID [facility] - Objective Vital Signs: Vital Signs Temperature 98.5 F 06/09/18 18:00 Pulse Rate 77 06/09/18 18:00 Respiratory Rate 18 06/09/18 18:00 Blood Pressure 108/49 06/09/18 18:00 O2 Sat by Pulse Oximetry (%) 95 06/09/18 14:37 Constitutional: Yes: Calm HENT: Yes: Atraumatic Neck: Yes: Supple Cardiovascular: Yes: Regular Rate and Rhythm Respiratory: Yes: CTA Bilaterally Gastrointestinal: Yes: Normal Bowel Sounds Extremities: Yes: WNL Neurological: Yes: Alert, Oriented Labs: CBC, BMP 06/09/18 07:35 06/09/18 07:35 INR, PTT INR 1.02 (0.83-1.09) 06/06/18 05:59 Problem List - Problems (1) Dementia Assessment/Plan: on meds stable Code(s): F03.90 - UNSPECIFIED DEMENTIA WITHOUT BEHAVIORAL DISTURBANCE Qualifiers: Dementia type: unspecified type Dementia behavioral disturbance: without behavioral disturbance Qualified Code(s): F03.90 - Unspecified dementia without behavioral disturbance (2) RLL pneumonia Assessment/Plan: on abx per id stable pulmonary on board Code(s): J18.1 - LOBAR PNEUMONIA, UNSPECIFIED ORGANISM Qualifiers: Pneumonia type: due to unspecified organism Qualified Code(s): J18.1 - Lobar pneumonia, unspecified organism (3) Hypertension Code(s): I10 - ESSENTIAL (PRIMARY) HYPERTENSION (4) Hyponatremia Assessment/Plan: will start her on NA pills on nacl ivf Code(s): E87.1 - HYPO-OSMOLALITY AND HYPONATREMIA Assessment/Plan HER SON SAID THAT HER SODIUM LEVEL ALWAYS STAY LOW
[2018-06-09] MEDS ORDERED: PT OWN MED DRAWER 7, Y5N ONE (19:41)
[2018-06-09] MEDS: ATORVASTATIN CA 20 MG TABLET (FP) PO SCH (21:18)
[2018-06-09] MEDS: LATANOPROST 0.005% OPHTH SOLN 2.5ML BOTTLE OU SCH (21:20)
[2018-06-09] MEDS: SODIUM CHLORIDE 1 GM TABLET PO SCH (21:21)
[2018-06-10] MEDS: MEMANTINE HCL 10 MG TABLET (FP) PO SCH (09:15)
[2018-06-10] MEDS: LISINOPRIL 5 MG TABLET (FP) PO SCH (09:15)
[2018-06-10] MEDS: risperiDONE 0.25 MG TABLET (FP) PO SCH (09:15)
[2018-06-10] MEDS: SODIUM CHLORIDE 1 GM TABLET PO SCH (09:15)
[2018-06-10] MEDS: CEFTRIAXONE 1 GM/50 ML BAG IVPB SCH (09:15)
[2018-06-10 09:25] LABS: BASO % 0.5 % (0-2.0); HEMATOCRIT 29.2 % (32.4-45.2); HEMOGLOBIN 9.7 GM/dl (10.7-15.3); LYMPH % 10.2 % (8-40); MCH 28.2 pg (25.7-33.7); MCHC 33.3 g/dl (32.0-36.0); MEAN CELL VOLUME 84.9 fl (80-96); MEAN PLT VOLUME 7.6 fl (7.5-11.1); MONO % 9.1 % (3.8-10.2); NEUT % 79.2 % (42.8-82.8); PLATELET COUNT 312 K/MM3 (134-434); RBC 3.44 M/mm3 (3.60-5.2); RDW 14.2 % (11.6-15.6)
[2018-06-10 09:42] LABS: ALBUMIN 2.3 g/dl (3.5-5.0); ALK PHOS 59 U/L (32-92); ANION GAP 7 MMOL/L (8-16); BILIRUBIN,TOTAL 0.5 mg/dl (0.2-1.0); BLOOD UREA NITROGEN 14 mg/dl (7-18); CALCIUM 7.9 mg/dl (8.4-10.2); CHLORIDE 93 mmol/L (98-107); CO2 25 mmol/L (22-28); GLUCOSE,RANDOM 82 mg/dl (74-106); POTASSIUM 3.9 mmol/L (3.5-5.1); SGOT/AST 20 U/L (10-42); SGPT/ALT 16 U/L (10-40); SODIUM 125 mmol/L (136-145); TOT PROT 4.8 g/dl (6.4-8.3)
[2018-06-10 09:49] LABS: CREATININE < 0.6 mg/dl (0.6-1.3)
[2018-06-10] MEDS: AZITHROMYCIN IVPB 250 ML IVPB SCH (09:55)
[2018-06-10 10:02] VITALS: BP 109/53; PULSE 67; TEMP 98.3
--- NOTE | 2018-06-10 10:26 | DS ---
Physical Examination Vital Signs: Vital Signs Temperature 98.3 F 06/10/18 09:58 Pulse Rate 67 06/10/18 09:58 Respiratory Rate 17 06/10/18 09:58 Blood Pressure 109/53 06/10/18 09:58 O2 Sat by Pulse Oximetry (%) 99 06/09/18 21:00 Constitutional: Yes: No Distress HENT: Yes: Atraumatic Neck: Yes: Supple Cardiovascular: Yes: Regular Rate and Rhythm Respiratory: Yes: CTA Bilaterally Gastrointestinal: Yes: Normal Bowel Sounds Extremities: Yes: WNL Edema: No Peripheral Pulses WNL: Yes Neurological: Yes: Alert Labs: CBC, BMP 06/10/18 06:00 06/10/18 06:00 Discharge Summary Reason For Visit: RT LOWER LOBE PNEUMONIA/HYPOTHERMIA,DEMENTIA Current Active Problems Dementia (Acute) Hypertension (Acute) Hyponatremia (Acute) Hypothermia (Acute) RLL pneumonia (Acute) Condition: Stable - Instructions Diet, Activity, Other Instructions: see your pmd next week to follow up cbc cmp Disposition: HOME - Home Medications Comprehensive Discharge Medication List: Ambulatory Orders Atorvastatin Ca [Lipitor] 20 mg PO Q2D 06/06/18 Latanoprost 0.005% Eye Drops [Xalatan 0.005% Eye Drops -] 1 drop OP HS 06/06/18 Lisinopril 5 mg PO DAILY 06/06/18 Memantine HCl 10 mg PO BID 06/06/18 Risperidone 1 tab PO BID 06/06/18 Amox-Tr/K Cl [Augmentin - 500Mg Tablet] 1 tab PO BID #6 tablet 06/09/18 Azithromycin 500 mg PO DAILY #1 tablet 06/09/18 mt home
[2018-06-10] MEDS ORDERED: PT OWN MED DRAWER 7, Y5N ONE (13:24)
--- NOTE | 2018-06-10 22:27 | EKG ---
Test Reason : Blood Pressure : / mmHG Vent. Rate : 070 BPM Atrial Rate : 070 BPM P-R Int : 108 ms QRS Dur : 068 ms QT Int : 368 ms P-R-T Axes : 070 066 069 degrees QTc Int : 397 ms SINUS RHYTHM WITH SHORT NH ANTERIOR INFARCT , AGE UNDETERMINED ABNORMAL ECG WHEN COMPARED WITH ECG OF 06-JUN-2018 06:37, PREMATURE SUPRAVENTRICULAR COMPLEXES ARE NO LONGER PRESENT Confirmed by DANIEL ALMENDAREZ MD ([id number]) on 06/10/2018 10:27:10 PM Referred By: DR CHAVEZ Confirmed By:DANIEL ALMENDAREZ MD
== END 2018-06-10 12:45 | disposition home or self-care (01) | DRG 194 ==
LOC: FER 05:16 → FM/S 09:42
PROVIDERS: ADMIT Internal Medicine; ATTEND Internal Medicine
DX: J18.1 Lobar pneumonia, unspecified organism (principal); E87.1 Hypo-osmolality and hyponatremia; F03.90 Unspecified dementia, unspecified severity, without behavioral disturbance, psychotic disturbance, mood disturbance, and anxiety; I10 Essential (primary) hypertension; D64.9 Anemia, unspecified; R68.0 Hypothermia, not associated with low environmental temperature; E78.00 Pure hypercholesterolemia, unspecified; R53.1 Weakness; J44.9 Chronic obstructive pulmonary disease, unspecified
CPT/HCPCS: 36415; 70450-TC; 71045-TC-FY; 71250-TC; 80053; 81003; 81015; 82803; 83605; 84443; 84484; 85025; 85610; 87040; 87086; 87899; 93005; 99283-25; J7030